=== PATIENT | female | born 1995 | race African-American/Black ===

== ENCOUNTER 2022-12-21 09:57 | Emergency (ER) | payer MEDICAID ==
[~2022-12-21] VITALS: Ht 165.1 cm; Wt 57.0 kg
[2022-12-21 10:04] VITALS: BP 139/100
[2022-12-21 10:59] LABS: BASOPHILS % 0.3 % (0.0-2.0); EOSINOPHILS % 0.5 % (0.0-5.0); HEMATOCRIT. 40.3 % (36.0-48.0); HEMOGLOBIN. 13.4 g/dL (12.0-16.0); LYMPHOCYTES % 14.4 % (20.0-50.0); MEAN CORPUSCULAR HEMOGLOBIN 29.6 pg (28.0-32.0); MEAN CORPUSCULAR VOLUME 89.2 fL (81.0-99.0); MEAN PLATELET VOLUME 8.8 fl (7.4-10.4); MONOCYTES % 2.7 % (2.0-8.0); NEUTROPHILS % 82.1 % (40.0-76.0); PLATELET 299 x1000/uL (130-400); RED BLOOD CELL COUNT 4.52 mill/uL (4.2-5.4); RED CELL DISTRIBUTION WIDTH 18.8 % (11.6-14.6)
[2022-12-21] MEDS ORDERED: METOCLOPRAMIDE HCL 10MG/2ML VIAL IV STA (11:02)
[2022-12-21] MEDS ORDERED: MAGNESIUM/ALUMINUM HYDROXIDE/SIMETHICONE 30ML UDC PO STA ×2 (11:02)
[2022-12-21] MEDS ORDERED: FAMOTIDINE 20MG/2ML VIAL IV STA (11:02)
[2022-12-21] MEDS ORDERED: VISCOUS LIDOCAINE 2% 15 ML UDC PO STA (11:02)
[2022-12-21] MEDS ORDERED: DICYCLOMINE 10 MG/5 ML ORAL SYR PO STA (11:02)
[2022-12-21 11:05] LABS: HCG SCREEN NEGATIVE
[2022-12-21] MEDS ORDERED: HALOPERIDOL LACTATE 5MG/ML VIAL IM ONE (11:15)
[2022-12-21 11:28] LABS: CHLORIDE 109 mEq/L (98-107)
[2022-12-21] MEDS ORDERED: ONDA4TAB11 PO (12:30)
== END 2022-12-21 12:45 | disposition home or self-care (01) ==
LOC: ER 09:57
DX: F12.188 Cannabis abuse with other cannabis-induced disorder (principal); R10.84 Generalized abdominal pain; R11.2 Nausea with vomiting, unspecified; F12.10 Cannabis abuse, uncomplicated
CPT/HCPCS: 36415; 80053; 83690; 84703; 85025; 96372; 96374; 96375; 99284; J1630; J2765; J3490; Z7610